=== PATIENT | male | born 1990 | race Caucasian/White ===

== ENCOUNTER 2024-12-27 14:15 | Emergency (ER) | payer OTHER ==
[~2024-12-27] VITALS: Ht 182.9 cm; Wt 87.0 kg
[2024-12-27 14:27] LABS: BASOPHILS 0.5 % (0-2); EOSINOPHILS 1.6 % (0-6); HEMATOCRIT 41.5 % (35.0-50.0); HEMOGLOBIN 14.3 g/dL (12.0-18.0); LYMPHOCYTES 19.3 % (24-44); MCH 31.1 (27-36); MCHC 34.6 g/dl (30-36); MCV 89.9 fl (81-99); MONOCYTES 6.6 % (0-12); PLATELET COUNT 290 K/uL (140-440); RBC 4.61 M/ul (4.3-5.7); RDW 13.5 (10.5-15.0)
[2024-12-27 14:49] LABS: ALBUMIN 4.1 g/dL (3.4-5.0); ALBUMIN/GLOBULIN RATIO 1.17 (1.1-2.4); ALCOHOL, MEDICAL <3 ng/dL (<3); ALKALINE PHOSPHATASE 80 U/L (46-116); ALT (SGPT) 24 U/L (14-59); ANION GAP 13.9 (7-21); AST (SGOT) 17 U/L (15-37); BILIRUBIN, TOTAL 0.5 mg/dL (0.2-1.0); BUN/CREATININE RATIO 9.23 (6.0-28.6); CALCIUM 9.2 mg/dL (8.5-10.1); CARBON DIOXIDE 30 mmol/L (21-32); CHLORIDE 102 mmol/L (98-107); GLOMERULAR FILTRATION RATE,EST 75 mL/min (>60); POTASSIUM 3.9 mmol/L (3.5-5.1); PROTEIN, TOTAL 7.6 g/dL (6.4-8.2); UREA NITROGEN 12 mg/dL (7-18)
[2024-12-27] MEDS ORDERED: HYDROmorphone HCL 1 MG/ML SYR IV PRN (15:00)
[2024-12-27] MEDS ORDERED: ondansetron HCL 4 MG/2 ML VIAL ONE (15:09)
[2024-12-27] MEDS ORDERED: ondansetron HCL 4 MG/2 ML VIAL IV ONE (15:15)
[2024-12-27] MEDS ORDERED: DIPHTH,PERTUSS(ACELL),TET VAC 0.5 ML SYRINGE IM ONE (16:30)
[2024-12-27] MEDS ORDERED: HYDROCODON-ACE1 EA11 PO (17:31)
[2024-12-27] MEDS ORDERED: ONDANSETRON ODT8 MG PO (17:31)
[2024-12-27] MEDS ORDERED: HYDROCODONE/ACETA 5/325 TAB PO ONE (17:45)
[2024-12-27 17:48] VITALS: BP 116/81
== END 2024-12-27 17:48 | disposition home or self-care (01) ==
LOC: ED 14:15
PROVIDERS: Emergency Medicine
DX: S02.31XA Fracture of orbital floor, right side, initial encounter for closed fracture (principal); S06.0XAA Concussion with loss of consciousness status unknown, initial encounter; S02.40EA Zygomatic fracture, right side, initial encounter for closed fracture; V89.2XXA Person injured in unspecified motor-vehicle accident, traffic, initial encounter; N28.9 Disorder of kidney and ureter, unspecified
CPT/HCPCS: 36415; 70450; 71260; 72125; 74177; 80053; 85025; 90715; G0480; J1171; J2405; Q9967